=== PATIENT | female | born 1995 | race African-American/Black ===

== ENCOUNTER 2016-11-10 19:28 | Emergency (ER) | payer OTHER ==
--- NOTE | ~2016-11-10 | EKG ---
PATIENT: CHELLY MORLEY UNIT #: [id number] Ventricular Rate: 87 BPM Atrial Rate: 87 BPM P-R Interval: 146 ms QRS Duration: 76 ms Q-T Interval: 338 ms QTC Calculation(Bezet): 406 ms P [place]: 79 degrees Calculated R [place]: 91 degrees Calculated T [place]: 48 degrees Diagnosis Line: Normal sinus rhythm with sinus arrhythmia Diagnosis Line: Rightward axis Diagnosis Line: Borderline ECG Diagnosis Line: No previous ECGs available Diagnosis Line: Confirmed by JEREMÍAS BLUM MD ([id number]) on Diagnosis Line: 11/11/2016 11:52:56 AM INTERPRETING MDKhloe OLIVARES
--- NOTE | ~2016-11-10 | CR72 ---
[facility] A Service of [facility] & [facility] RADIOLOGY TEXT RESULTS PATIENT: CHELLY MORLEY LOCATION: [facility] : [birth year] UNIT #: [id number] AGE: [address]: Hans Blanco MD SEX: F ORDER DR: [id number] [facility] [address] [place], [place] [address] [id number] E MR#: [id number] Acc #: [id number] NAME: CHELLY MORLEY : 1995 SEX: F STUDY DATE/TIME: 11/10/2016 20:11 UNIT: [facility] ROOM: STUDY DESCRIPTION: CR Chest Single View Portable Attending Physician: Er Doctor Generic Referring Physician: Bert Gabriel M.D. Ordering Physician: Ed Florentino Talbert M.D. Primary Care Physician: Bert Gabriel M.D. MEDICAL IMAGING REPORT This report is preliminary unless electronic signature is present EXAM Portable chest, 11/10/2016 HISTORY Increased heart rate and chest pain for 2 weeks with heart palpitations. FINDINGS A single AP portable view of the chest shows both lungs to be clear. The heart is normal in size. The mediastinal contour is normal. No significant bone abnormalities are seen. IMPRESSION Normal portable chest. Dictated by... Charly Lee M.D. THIS IS AN ELECTRONICALLY VERIFIED REPORT Charly Lee M.D. at 11/11/2016 4:20 PM KEVIN/martha TD: 11/11/2016 02:47 JOB #: [id number] MEDICAL IMAGING REPORT COPY
[2016-11-10 19:55] LABS: BASOPHIL% 0.4 % (0-2.5); EOSINOPHIL# 0.2 X10e3 (0-0.7); HEMATOCRIT 37.3 % (35.0-45.0); HEMOGLOBIN 12.3 gm/dL (12.0-16.0); LYMPHOCYTE# 1.5 X10e3 (1.0-3.5); LYMPHOCYTE% 13.9 % (17.0-45.0); MEAN CELL VOLUME 85.1 FL (83-96); MEAN CORPUSCULAR HEMOGLOBIN 28.1 PG (28-34); MEAN CORPUSCULAR HGB CONC 33.1 g/dL (30-36); MEAN PLATELET VOLUME 7.3 FL (6.5-11.5); MONOCYTE# 0.8 X10e3 (0-1.0); NEUTROPHIL# 8.3 X10e3 (1.5-7.1); NEUTROPHIL% 76.7 % (40-75); PLATELET COUNT 298 X10e3 (140-420); RED BLOOD COUNT 4.38 X10e (3.90-5.30); RED CELL DISTRIBUTION WIDTH 13.4 % (11.0-15.5); WHITE BLOOD COUNT 10.8 X10e3 (4.0-10.5)
[2016-11-10 19:57] LABS: DIFF IND NO
[2016-11-10 20:16] LABS: ALBUMIN SERUM 3.9 g/dL (3.5-5.0); ALKALINE PHOSPHATASE 66 U/L (32-92); ALT (SGPT) 12 U/L (10-40); AST (SGOT) 20 U/L (10-42); BILIRUBIN,TOTAL 0.4 mg/dL (0.2-2.0); BLOOD UREA NITROGEN 7 mg/dL (9-23); BUN/CREATININE RATIO 11.66; CALCIUM SERUM 8.9 mg/dL (8.4-10.2); CARBON DIOXIDE 27 mmol/L (22-31); CHLORIDE 106 mmol/L (100-111); CREATININE SERUM 0.6 mg/dL (0.6-1.4); GLOM FILT RATE Estimated ABOVE60 mL/min (>60); GLUCOSE FASTING 90 mg/dL (70-110); POTASSIUM 4.1 mmol/L (3.5-5.1); PROTEIN TOTAL SERUM 7.3 g/dL (6.0-8.3); SODIUM 140 mmol/L (135-145)
[2016-11-10 20:17] LABS: BILIRUBIN, DIRECT <0.1 mg/dL (0.0-0.2); BILIRUBIN,INDIRECT 0.3 mg/dL (0.0-0.9)
[2016-11-10 20:20] LABS: URINE SOURCE CLEAN CATCH
[2016-11-10 20:40] LABS: CULTURE INDICATED? YES; URBCS1 AUWI 0-2 /[HPF] (0-2); URINE APPEARANCE CLOUDY; URINE BACTERIA AUWI 1+ (NEGATIVE); URINE BILIRUBIN NEG (NEG); URINE BLOOD NEG (NEG); URINE COLOR YELLOW; URINE GLUCOSE NEG (NEG); URINE KETONE NEG (NEG); URINE LEUKOCYTE ESTERASE 2+ (NEG); URINE NITRATE NEG (NEG); URINE PROTEIN NEG (NEG); URINE SPECIFIC GRAVITY 1.006 (1.003-1.035); URINE SQUAMOUS EPITHELIAL CELL OCC /[HPF]; URINE UROBILINOGEN 0.2 MG/DL (NEG); UWBCS1 AUWI 25-50 (0-5)
[2016-11-10 20:57] LABS: AMPHETAMINE NEG (NEG); BARBITURATES NEG (NEG); BENZODIAZEPINES NEG (NEG); COCAINE NEG (NEG); MARIJUANA NEG (NEG); OPIATES NEG (NEG); TRICYCLIC ANTIDEPRESSANTS NEG (NEG); U METHADONE NEG (NEG)
== END 2016-11-10 21:55 | disposition home or self-care (01) ==
LOC: CED 19:28
PROVIDERS: Emergency Medicine
DX: R10.13 Epigastric pain (principal); K21.9 Gastro-esophageal reflux disease without esophagitis
CPT/HCPCS: 71010; 80048; 80076; 80307; 81003; 83690; 84443; 84703; 85025; 87086; 93005; 99284

== ENCOUNTER 2017-02-09 20:21 | Emergency (ER) | payer OTHER ==
--- NOTE | ~2017-02-09 | CR72 ---
[facility] A Service of [facility] & [facility] RADIOLOGY TEXT RESULTS PATIENT: CHELLY MORLEY LOCATION: [facility] : [birth year] UNIT #: [id number] AGE: [address]: RENE KWONG APRN SEX: F ORDER DR: [id number] [facility] [address] [place], [place] [address] [id number] E MR#: [id number] Acc #: [id number] NAME: CHELLY MORLEY : 1995 SEX: F STUDY DATE/TIME: 02/09/2017 21:23 UNIT: [facility] ROOM: STUDY DESCRIPTION: CR Chest Single View Portable Attending Physician: Rene Kwong Aprn Ordering Physician: Rene Kwong Aprn Primary Care Physician: Bert Gabriel M.D. MEDICAL IMAGING REPORT This report is preliminary unless electronic signature is present EXAM Portable chest 02/09/2017 HISTORY Wheezing, cough, chest pain, shortness of breath for 1 week. FINDINGS A single AP portable view of the chest shows both lungs to be clear. The heart is normal in size. The mediastinal contour is normal. No significant bone abnormalities are seen. IMPRESSION Normal portable chest. Dictated by... Charly Lee M.D. THIS IS AN ELECTRONICALLY VERIFIED REPORT Charly Lee M.D. at 02/10/2017 10:42 AM KEVIN/maris TD: 02/10/2017 07:47 JOB #: [id number] MEDICAL IMAGING REPORT Page 1 of 1 COPY
[2017-02-09 21:49] LABS: INFLUENZA A NEG (NEG); INFLUENZA B NEG (NEG)
== END 2017-02-09 22:59 | disposition home or self-care (01) ==
LOC: CED 20:21 → CFTX 20:21
PROVIDERS: Nurse Practitioner Family
DX: J20.9 Acute bronchitis, unspecified (principal); K21.9 Gastro-esophageal reflux disease without esophagitis
CPT/HCPCS: 71010; 84703; 87651; 87804; 94640; 99283

== ENCOUNTER 2017-04-13 22:33 | Emergency (ER) | payer OTHER ==
[~2017-04-13] VITALS: Ht 165.1 cm; Wt 54.9 kg
--- NOTE | ~2017-04-13 | EKG ---
PATIENT: CHELLY MORLEY UNIT #: [id number] Ventricular Rate: 99 BPM Atrial Rate: 99 BPM P-R Interval: 140 ms QRS Duration: 66 ms Q-T Interval: 328 ms QTC Calculation(Bezet): 420 ms P [place]: 75 degrees Calculated R [place]: 69 degrees Calculated T [place]: 67 degrees Diagnosis Line: Normal sinus rhythm Diagnosis Line: Normal ECG Diagnosis Line: When compared with ECG of 10-NOV-2016 15:53, Diagnosis Line: No significant change was found Diagnosis Line: Confirmed by WAYNE LARA MD ([id number]) on Diagnosis Line: 04/14/2017 2:02:36 PM INTERPRETING MD: MARCO FLORIAN
== END 2017-04-14 01:40 | disposition home or self-care (01) ==
LOC: CED 22:33
DX: R10.13 Epigastric pain (principal)
CPT/HCPCS: 84703; 93005; 99284

== ENCOUNTER 2017-05-10 22:30 | Emergency (ER) | payer OTHER ==
[~2017-05-10] VITALS: Ht 167.6 cm; Wt 57.1 kg
[2017-05-11 00:54] LABS: URINE SOURCE CLEAN CATCH
[2017-05-11 00:56] LABS: URINE APPEARANCE CLEAR; URINE BILIRUBIN NEG (NEG); URINE BLOOD NEG (NEG); URINE COLOR YELLOW; URINE GLUCOSE NEG (NEG); URINE KETONE NEG (NEG); URINE LEUKOCYTE ESTERASE TRACE (NEG); URINE NITRATE NEG (NEG); URINE PROTEIN NEG (NEG); URINE SPECIFIC GRAVITY 1.007 (1.003-1.035); URINE UROBILINOGEN 0.2 MG/DL (NEG)
[2017-05-11 00:58] LABS: CULTURE INDICATED? YES; URINE BACTERIA AUWI 1+ (NEGATIVE); URINE SQUAMOUS EPITHELIAL CELL FEW /[HPF]
== END 2017-05-11 01:27 | disposition home or self-care (01) ==
LOC: CED 22:30
PROVIDERS: Emergency Medicine
DX: R19.7 Diarrhea, unspecified (principal); K21.9 Gastro-esophageal reflux disease without esophagitis
CPT/HCPCS: 81003; 87086; 99284